=== PATIENT | female | born 1960 | race Caucasian/White ===

== ENCOUNTER → 2016-08-15 | Outpatient (CLI) | payer BC ==
[~2016-08-15] MED LIST: CYCL5TAB PO; LSN/10125 PO; OXYC-609 PO; SULF800T23 PO; ULT/50 PO
--- NOTE | 2016-08-15 17:13 | MAMMOGRAPHY REPORT ---
BILATERAL DIGITAL SCREENING MAMMOGRAM TOMOSYNTHESIS WITH CAD: 08/15/2016 CLINICAL HISTORY: Routine screening. Patient has no complaints. TECHNIQUE: Breast tomosynthesis in addition to standard 2D mammography was performed. Current study was also evaluated with a Computer Aided Detection (CAD) system. COMPARISON: Comparison is made to exams dated: 08/11/2015 mammogram, 06/15/2013 mammogram, 06/05/2012 mammogram, 08/14/2010 mammogram, 07/05/2009 ultrasound - [facility], and 07/03/2007. BREAST COMPOSITION: There are scattered areas of fibroglandular density in both breasts. FINDINGS: The parenchymal pattern is unchanged. There are a few scattered benign-appearing microca lcifications. No developing mass, architectural distortion or cluster of suspicious microcalcificat ions is seen in either breast. IMPRESSION: ACR BI-RADS CATEGORY 2: BENIGN There is no mammographic evidence of malignancy. A 1 year screening mammogram is recommended. The p atient will receive written notification of the results. Approximately 10% of breast cancers are not detected with mammography. A negative mammographic repor t should not delay biopsy if a clinically suggestive mass is present. Hope Kelly M.D. ay/:08/15/2016 16:03:35 Oxygen Equipment Aide: Tricia NAVARRETE(Blanca)(M), [facility] letter sent: Normal 1/2 BI-RADS Code: ACR BI-RADS Category 2: Benign
== END | disposition home or self-care (01) ==
LOC: C.MAMM 08:17
PROVIDERS: ATTEND Nurse Practitioner
DX: Z12.31 Encounter for screening mammogram for malignant neoplasm of breast (principal)

== ENCOUNTER 2017-02-23 18:27 | Emergency (ER) | payer BC, OTHER ==
[~2017-02-23] VITALS: Ht 160 cm; Wt 69.5 kg
[~2017-02-23 18:27] MED LIST changes: -SULF800T23 PO
[2017-02-23 18:35] VITALS: TEMP 37.5; Ht 160 cm; Wt 69.5 kg
[2017-02-23] MEDS ORDERED: SODIUM CHLORIDE 0.9% 1000ML 1,000 ML IV STA (18:52)
[2017-02-23] MEDS ORDERED: OPTIRAY 320 IV PRN (19:00)
[2017-02-23 19:16] LABS: BASO % 0.2 %; BASO ABS # 0.02 K/uL (0-0.2); COMPLETE YES; EOS % 0.3 %; HEMATOCRIT 41.9 % (37-47); IG% 0.3 %; LYMPH % 11.8 %; LYMPH ABS # 1.38 K/uL (1.2-3.4); MEAN CELL VOLUME 95.4 fL (80-100); MEAN CORPUSCULAR HEMOGLOBIN 32.8 pg (25-34); MEAN CORPUSCULAR HGB CONC 34.4 g/dl (32-36); MEAN PLATELET VOLUME 9.1 fL (7.4-10.4); MONO % 6.4 %; PLATELET COUNT 273 K/uL (130-400); RED BLOOD COUNT 4.39 M/uL (4.2-5.4); WHITE BLOOD COUNT 11.67 K/uL (4.8-10.8)
[2017-02-23 19:27] LABS: URINE APPEARANCE CLEAR (CLEAR); URINE BILIRUBIN NEG (NEG); URINE COLOR YELLOW; URINE EPITHELIAL CELL AUTO 20-30 /lpf (0-5); URINE NITRITE NEG (NEG); URINE SPECIFIC GRAVITY 1.025 (1.000-1.030); UROBILINOGEN NEG (NEG)
[2017-02-23 19:28] LABS: MANUAL MICROSCOPIC REQUIRED? NO; REVIEW REQ? YES
[2017-02-23 19:35] LABS: BUN/CREATININE RATIO 16.8 (10-20); CALCIUM 9.5 mg/dl (8.5-10.1); POTASSIUM 3.8 mmol/L (3.5-5.1)
[2017-02-23 19:38] LABS: ALB/GLOB RATIO 0.9 (0.9-2); ZZUR CULT IF INDIC CLEAN CATCH YES
--- NOTE | 2017-02-23 20:10 | DIAGNOSTIC IMAGING REPORT ---
CT OF THE ABDOMEN AND PELVIS WITH CONTRAST CLINICAL HISTORY: Right lower quadrant tenderness, right lower back pain and fever. COMPARISON STUDY: KUB September 26, 2015. TECHNIQUE: Following IV administration of 92 mL of Optiray-320, axial images of the abdomen and pelvis were obtained from the lung bases to the proximal femurs. Images were reviewed in the axial, sagittal, and coronal planes. IV contrast was administered without complication. A dose lowering technique was utilized adhering to the principles of ALARA. FINDINGS: Groundglass opacities within visualized portions of the lower lungs favor atelectasis. The liver, spleen, adrenal glands, kidneys and pancreas are normal. There is no biliary or pancreatic ductal dilatation. No hydronephrosis is present. Both nephrograms are symmetric. Caliber and wall thickness of small and large bowel are normal. The appendix is normal. There are scattered colonic diverticula without evidence for acute diverticulitis. The uterus is not visualized and likely is surgically absent. No suspicious osseous lesion is present. The lumbar spine is better depicted on the dedicated CT. IMPRESSION: 1. No acute process within the abdomen or pelvis. Normal appendix. 2. Colonic diverticulosis without evidence for acute diverticulitis. Electronically signed by: Sergio Correa M.D. 02/23/2017 8:09 PM Dictated Date/Time: 02/23/2017 8:00 PM
--- NOTE | 2017-02-23 20:26 | DIAGNOSTIC IMAGING REPORT ---
CT OF THE LUMBAR SPINE WITH CONTRAST CLINICAL HISTORY: Right-sided back pain. Fever. COMPARISON STUDY: Lumbar spine CT October 11, 2015. TECHNIQUE: Axial images of the lumbar spine were obtained following intravenous injection of 92 cc Optiray 320 IV. Sagittal and coronal reconstructions were viewed. FINDINGS: Alignment of lumbar spine is anatomic. Vertebral body heights are maintained. There is no fracture or suspicious lesion. The central canal and neural foramen are suboptimally assessed by CT but no epidural fluid collection is identified. The paravertebral soft tissues are unremarkable. A broad-based disc protrusion at L5-S1 is unchanged since CT of October 11, 2015. Mild disc bulges are noted at a few levels. There is no evidence for severe central canal or neural foraminal stenosis. IMPRESSION: 1. No acute lumbar spine fracture. 2. No acute abnormality within the lumbar spine by CT. The central canal/epidural space and neural foramen are suboptimally assessed by CT but no significant abnormality is identified and no change is noted since CT of October 11, 2015. 3. No significant change in a broad-based disc protrusion at L5-S1. Electronically signed by: Sergio Correa M.D. 02/23/2017 8:25 PM Dictated Date/Time: 02/23/2017 8:09 PM
[2017-02-23] MEDS ORDERED: SULFAMETHOXAZOLE/TRIMETHOPRIM DS 800/160MG TAB PO STA (20:47)
[2017-02-23] MEDS ORDERED: SULF800T23 PO ×2 (20:50→21:20)
--- NOTE | 2017-02-23 20:50 | EMERGENCY ROOM VISIT NOTE ---
History First contact with patient: 18:39 Chief Complaint: FLANK PAIN Stated Complaint: BACK PAIN W/FEVER History of Present Illness The patient is a 56 year old female who presents to the Emergency Room with complaints of back pain and fever. The patient states that she has had right lower back pain for 2 days. She states this is not unusual for her, as she does have a history of chronic back pain and was told that she had disc herniation in the past. She reports that yesterday, she noticed the pain after sitting for a long period of time. She took diclofenac without relief. She states that she noticed a fever of 101F at home. She has had some nasal congestion recently, but no other flulike symptoms. She denies cough, abdominal pain, chest pain, shortness of breath, or urinary symptoms. She states that her granddaughter recently had croup, but she denies any other sick contacts. She has not taken any medications at home for her symptoms. Review of Systems A complete 10 point review of systems was reviewed with the patient with pertinent positives and negatives as per history of present illness. All else were negative. Past Medical/Surgical History Medical Problems: (1) Degenerative disc disease (2) Hypertension Nos Family History No significant family history Social History Smoking Status: Never Smoker Alcohol Use: none Marital Status: Housing Status: lives with significant other Occupation Status: employed Current/Historical Medications Scheduled Hctz/Lisinopril (Lisinopril/Hctz 10/12.5 Mg), 1 TAB PO DAILY Sulfa/Trimethoprim (Bactrim Ds 800MG/160MG), 1 TAB PO BID Physical Exam Vital Signs Date Time Temp Pulse Resp B/P (MAP) Pulse Ox O2 Delivery O2 Flow Rate FiO2 02/23/17 21:05 75 18 117/74 96 02/23/17 19:59 93 18 124/98 99 Room Air 02/23/17 18:35 37.5 97 18 137/99 97 Room Air Physical Exam VITALS: Vitals are noted on the nurse's note and reviewed by myself. Vital signs stable. GENERAL: This is a 56-year-old female, in no acute distress, nondiaphoretic, well-developed well-nourished. SKIN: The skin was without rashes. EARS: External auditory canals clear, tympanic membranes pearly jordan without erythema or effusion bilaterally. EYES: Pupils equal round and reactive to light and accommodation. Conjunctivae without injection, sclerae without icterus. Extraocular movements intact. NOSE: Patent, turbinates without inflammation or discharge. No sinus tenderness. MOUTH: Mucous membranes moist. Tonsils are not enlarged. Pharynx without erythema or exudate. NECK: Supple without nuchal rigidity. No lymphadenopathy. HEART: Regular rate and rhythm without murmurs gallops or rubs. LUNGS: Clear to auscultation bilaterally without wheezes, rales or rhonchi. ABDOMEN: Positive bowel sounds x 4. Soft, nontender, without masses or organomegaly. MUSCULOSKELETAL: No tenderness to palpation of the lumbar spinous processes. Mild tenderness to palpation in the right lumbar region. NEURO: Patient was alert and oriented to person place and time. Normal sensation to light and sharp touch. Deep tendon reflexes 2+ throughout. Medical Decision & Procedures ER Provider Diagnostic Interpretation: CT OF THE LUMBAR SPINE WITH CONTRAST IMPRESSION: 1. No acute lumbar spine fracture. 2. No acute abnormality within the lumbar spine by CT. The central canal/epidural space and neural foramen are suboptimally assessed by CT but no significant abnormality is identified and no change is noted since CT of October 11, 2015. 3. No significant change in a broad-based disc protrusion at L5-S1. CT OF THE ABDOMEN AND PELVIS WITH CONTRAST IMPRESSION: 1. No acute process within the abdomen or pelvis. Normal appendix. 2. Colonic diverticulosis without evidence for acute diverticulitis. Laboratory Results 02/23/17 19:03 Red Blood Count 4.39, Mean Corpuscular Volume 95.4, Mean Corpuscular Hemoglobin 32.8, Mean Corpuscular Hemoglobin Concent 34.4, Mean Platelet Volume 9.1, Neutrophils (%) (Auto) 81.0, Lymphocytes (%) (Auto) 11.8, Monocytes (%) (Auto) 6.4, Eosinophils (%) (Auto) 0.3, Basophils (%) (Auto) 0.2, Neutrophils # (Auto) 9.46, Lymphocytes # (Auto) 1.38, Monocytes # (Auto) 0.75, Eosinophils # (Auto) 0.03, Basophils # (Auto) 0.02 02/23/17 19:03 Test 02/23/17 19:03 White Blood Count 11.67 K/uL (4.8-10.8) Red Blood Count 4.39 M/uL (4.2-5.4) Hemoglobin 14.4 g/dL (12.0-16.0) Hematocrit 41.9 % (37-47) Mean Corpuscular Volume 95.4 fL (80-100) Mean Corpuscular Hemoglobin 32.8 pg (25-34) Mean Corpuscular Hemoglobin Concent 34.4 g/dl (32-36) Platelet Count 273 K/uL (130-400) Mean Platelet Volume 9.1 fL (7.4-10.4) Neutrophils (%) (Auto) 81.0 % Lymphocytes (%) (Auto) 11.8 % Monocytes (%) (Auto) 6.4 % Eosinophils (%) (Auto) 0.3 % Basophils (%) (Auto) 0.2 % Neutrophils # (Auto) 9.46 K/uL (1.4-6.5) Lymphocytes # (Auto) 1.38 K/uL (1.2-3.4) Monocytes # (Auto) 0.75 K/uL (0.11-0.59) Eosinophils # (Auto) 0.03 K/uL (0-0.5) Basophils # (Auto) 0.02 K/uL (0-0.2) RDW Standard Deviation 43.5 fL (36.4-46.3) RDW Coefficient of Variation 12.5 % (11.5-14.5) Immature Granulocyte % (Auto) 0.3 % Immature Granulocyte # (Auto) 0.03 K/uL (0.00-0.02) Urine Color YELLOW Urine Appearance CLEAR (CLEAR) Urine pH 5.0 (4.5-7.5) Urine Specific [place] 1.025 (1.000-1.030) Urine Protein NEG (NEG) Urine Glucose (UA) NEG (NEG) Urine Ketones NEG (NEG) Urine Occult Blood NEG (NEG) Urine Nitrite NEG (NEG) Urine Bilirubin NEG (NEG) Urine Urobilinogen NEG (NEG) Urine Leukocyte Esterase MODERATE (NEG) Urine WBC (Auto) 5-10 /hpf (0-5) Urine RBC (Auto) 0-4 /hpf (0-4) Urine Hyaline Casts (Auto) 0 /lpf (0-5) Urine Epithelial Cells (Auto) 20-30 /lpf (0-5) Urine Bacteria (Auto) 1+ (NEG) Anion Gap 6.0 mmol/L (3-11) Est Creatinine Clear Calc Drug Dose 58.7 ml/min Estimated GFR () 72.9 Estimated GFR (Non- 62.9 BUN/Creatinine Ratio 16.8 (10-20) Calcium Level 9.5 mg/dl (8.5-10.1) Total Bilirubin 0.6 mg/dl (0.2-1) Aspartate Amino Transf (AST/SGOT) 16 U/L (15-37) Alanine Aminotransferase (ALT/SGPT) 30 U/L (12-78) Alkaline Phosphatase 95 U/L (45-117) Total Protein 7.6 gm/dl (6.4-8.2) Albumin 3.7 gm/dl (3.4-5.0) Globulin 3.9 gm/dl (2.5-4.0) Albumin/Globulin Ratio 0.9 (0.9-2) Lipase 149 U/L (73-393) Date/Time Source Procedure Growth Status 02/23/17 19:03 Urine , Clean Catch Urine Culture - Final MORE THAN THREE TYPES OF ORGANISMS IN... Complete Medications Administered Medications (Trade) Dose Ordered Sig/[place] Route Start Time Stop Time Status Last Admin Dose Admin Sodium Chloride 1,000 ml @ 999 mls/hr Q1H1M STAT IV 02/23/17 18:52 02/23/17 19:52 DC 02/23/17 19:06 999 MLS/HR Trimethoprim/ Sulfamethoxazole (Septra Ds 800/ 160MG Tab) 1 tab NOW STAT PO 02/23/17 20:47 02/23/17 20:49 DC 02/23/17 20:58 1 TAB ED Course The patient was evaluated as above. Labs were drawn and IV access was obtained. Patient was medicated with 1 L normal saline solution. CT scan of the lumbar spine and abdomen/pelvis were performed and read by radiology as above. Patient was reevaluated and findings were discussed. She is ready for discharge. Discharge instructions were reviewed with the patient. The patient verbalized understanding of my assessment and treatment plan and was discharged home in good condition. Medical Decision Differential diagnosis includes epidural abscess, pyelonephritis, appendicitis, cholecystitis, colitis, urinary tract infection, among others. The patient is a 56-year-old female who presents today complaining of back pain. Patient was found to have a low-grade fever on initial exam. For this reason, a workup was performed to rule out a source of infection in the back or abdomen. CT of the lumbar spine with contrast showed no evidence of a fluid collection or infection. CT of the abdomen/pelvis showed no acute infectious or inflammatory findings. Labs revealed a mild leukocytosis and no other significant abnormalities. Urinalysis was suggestive of possible infection. The patient will be treated with Bactrim given her fever pending the results of the culture. She was encouraged to use Tylenol and ibuprofen for her fever at home and follow-up with her primary care provider this week for further evaluation. Based on the patient's presentation and work up, I feel the patient is stable for outpatient treatment. The patient was educated to return to the emergency department for any worsening of their current condition or new/concerning symptoms. She will follow up with her PCP. The patient's case was reviewed with Dr. Diaz, ED attending physician, who agreed with my assessment and treatment plan. Medication Reconcilliation Current Medication List: was personally reviewed by me Blood Pressure Screening Patient's blood pressure: Normal blood pressure Impression Primary Impression: Urinary tract infection Departure Information Dispostion Home / Self-Care Condition GOOD Prescriptions Sulfa/Trimethoprim (Bactrim Ds 800MG/160MG) Tab 1 TAB PO BID for 5 Days, #10 TAB Prov: Janis Lincoln ., ERIKA 02/23/17 Referrals Carline Cunningham, [facility] (PCP) Patient Instructions My [facility] Additional Instructions You have been treated in the Emergency Department for your fever and back pain. Laboratory results and imaging studies have ruled out any emergent causes for your symptoms which would warrant admission or surgery. You were prescribed Bactrim to be taken twice daily for a total of 5 days. This is an antibiotic. All antibiotics have the potential to cause diarrhea. Stop this medication and contact a medical provider if you were to develop any significant adverse side effects including: wheezing, shortness of breath, passing out, vomiting, or a diffuse rash. Always take antibiotics as directed and COMPLETE the ENTIRE course regardless of the improvement of your symptoms. For pain/fever control, you can use the following [id number] medicines ( if >12 yo): - Regular strength (325mg/tab) Tylenol (acetaminophen) 2 tabs every 4-6 hours as needed. Do not exceed 12 tablets in a 24 hour period. Avoid taking more than 4 grams (4000 mg) of Tylenol per day. This includes any other sources of acetaminophen you may take on a regular basis. - Regular strength (200 mg/tab) Advil (ibuprofen) 1-2 tabs every 4-6 hours as needed. Do not exceed a dose of 3200 mg per day. Drink plenty of water and stay well hydrated. Follow-up with your primary care provider this week. Return to the emergency department with worsening pain, worsening fevers, vomiting or any other new/concerning symptoms. Problem Qualifiers Primary Impression: Urinary tract infection
[2017-02-23 21:05] VITALS: BP 117/74; PULSE 75; O2SAT 96
== END 2017-02-23 21:05 | disposition home or self-care (01) ==
LOC: C.EDB 18:28 → C.EDC 21:05
DX: N39.0 Urinary tract infection, site not specified (principal); I10 Essential (primary) hypertension; Z79.899 Other long term (current) drug therapy